=== PATIENT | male | born 1955 | race Asian ===

== ENCOUNTER 2021-08-21 03:38 | Inpatient (IN) | payer OTHER ==
[2021-08-21 04:45] LABS: BASO % 0.6 % (0-2.0); EOS % 0.3 % (0-4.5); HEMATOCRIT 40.4 % (35.4-49); HEMOGLOBIN 13.2 GM/dL (11.7-16.9); LYMPH % 7.3 % (8-40); MCH 27.6 pg (25.7-33.7); MCHC 32.7 g/dl (32.0-35.9); MEAN CELL VOLUME 84.5 fl (80-96); MEAN PLT VOLUME 9.1 fl (7.5-11.1); MONO % 6.6 % (3.8-10.2); NEUT % 85.2 % (42.8-82.8); PLATELET COUNT 184 10^3/uL (134-434); RBC 4.79 M/mm3 (4.00-5.60); WHITE BLOOD COUNT 8.4 K/mm3 (4.0-10.0)
[2021-08-21 04:55] LABS: INR 1.7 (0.83-1.09); PROTHROMBIN TIME (PATIENT) 19.6 SEC (9.7-13.0)
[2021-08-21 04:58] LABS: ACTIVATED PTT 33.6 SECONDS (25.2-36.5)
[2021-08-21 05:12] LABS: CALCIUM 9.3 mg/dL (8.5-10.1)
[2021-08-21 05:13] LABS: ALBUMIN 3.9 g/dl (3.4-5.0); BLOOD UREA NITROGEN 37.3 mg/dL (7-18); MAGNESIUM 2.2 mg/dL (1.8-2.4)
[2021-08-21 05:16] LABS: CREATININE 1.6 mg/dL (0.55-1.3); PHOSPHOROUS 5.2 mg/dL (2.5-4.9)
[2021-08-21 05:17] LABS: BILIRUBIN,TOTAL 2.3 mg/dL (0.2-1); TOT PROT 7.2 g/dl (6.4-8.2)
[2021-08-21 05:19] LABS: N-TERMINAL BNP 4202.5 pg/ml (5-125)
[2021-08-21] MEDS ORDERED: FUROSEMIDE 40 MG/4 ML INJECTABLE VIAL IVPUSH SCH (12:30)
[2021-08-21 13:24] VITALS: BMI 34.3
[2021-08-21] MEDS: INSULIN SLIDING SCALE (NOVOLOG) 1 VIAL SQ SCH ×2 (16:51→21:38)
[2021-08-21 18:02] LABS: URINE UREA NITROGEN 136 mg/dL (350-1000)
[2021-08-21 18:05] LABS: CREATININE, URINE RANDOM < 13.0 mg/dL (30-150)
[2021-08-21] MEDS: ATORVASTATIN CA 20 MG TABLET (FP) PO SCH (21:37)
[2021-08-21] MEDS: APIXABAN 5 MG TABLET PO SCH (21:37)
[2021-08-22] MEDS: INSULIN SLIDING SCALE (NOVOLOG) 1 VIAL SQ SCH ×4 (06:05→21:22)
[2021-08-22 08:59] LABS: HEMATOCRIT 39.5 % (35.4-49); HEMOGLOBIN 13.1 GM/dL (11.7-16.9); MCH 27.6 pg (25.7-33.7); MCHC 33.2 g/dl (32.0-35.9); MEAN CELL VOLUME 83.3 fl (80-96); MEAN PLT VOLUME 8.9 fl (7.5-11.1); PLATELET COUNT 184 10^3/uL (134-434); RBC 4.74 M/mm3 (4.00-5.60); RDW 15.7 % (11.9-15.9); WHITE BLOOD COUNT 7.4 K/mm3 (4.0-10.0)
[2021-08-22 09:18] LABS: ALBUMIN 3.8 g/dl (3.4-5.0); BLOOD UREA NITROGEN 39.5 mg/dL (7-18); CALCIUM 9.3 mg/dL (8.5-10.1); CREATININE 1.4 mg/dL (0.55-1.3); MAGNESIUM 2.3 mg/dL (1.8-2.4)
[2021-08-22 09:19] LABS: TOT PROT 7.2 g/dl (6.4-8.2)
[2021-08-22 09:20] LABS: BILIRUBIN,TOTAL 2.3 mg/dL (0.2-1)
[2021-08-22] MEDS: APIXABAN 5 MG TABLET PO SCH ×2 (09:24→21:22)
[2021-08-22] MEDS: metoPROLOL SUCCINATE 25 MG TAB.SR.24H (FP) PO SCH (09:24)
[2021-08-22] MEDS: ASPIRIN COATED 81 MG TABLET.EC PO SCH (09:24)
[2021-08-22] MEDS: FUROSEMIDE 40 MG/4 ML INJECTABLE VIAL IVPUSH SCH ×2 (11:05→16:43)
[2021-08-22] MEDS ORDERED: INSULIN (NOVOLOG) ASPART 100 UNITS/ML 10ML VIAL ONE (20:59)
[2021-08-22] MEDS: ATORVASTATIN CA 20 MG TABLET (FP) PO SCH (21:22)
[2021-08-23] MEDS: FUROSEMIDE 40 MG/4 ML INJECTABLE VIAL IVPUSH SCH ×3 (05:53→15:23)
[2021-08-23] MEDS: INSULIN SLIDING SCALE (NOVOLOG) 1 VIAL SQ SCH ×4 (06:00→21:22)
[2021-08-23] MEDS: metoPROLOL SUCCINATE 25 MG TAB.SR.24H (FP) PO SCH (09:45)
[2021-08-23] MEDS: APIXABAN 5 MG TABLET PO SCH ×2 (09:45→21:21)
[2021-08-23] MEDS: ASPIRIN COATED 81 MG TABLET.EC PO SCH (09:45)
[2021-08-23 12:59] LABS: BASO % 0.9 % (0-2.0); EOS % 1.9 % (0-4.5); HEMATOCRIT 42.5 % (35.4-49); HEMOGLOBIN 13.7 GM/dL (11.7-16.9); LYMPH % 19.6 % (8-40); MCH 27.3 pg (25.7-33.7); MCHC 32.2 g/dl (32.0-35.9); MEAN CELL VOLUME 84.8 fl (80-96); MEAN PLT VOLUME 9.4 fl (7.5-11.1); MONO % 12.1 % (3.8-10.2); NEUT % 65.5 % (42.8-82.8); PLATELET COUNT 219 10^3/uL (134-434); RBC 5.02 M/mm3 (4.00-5.60); WHITE BLOOD COUNT 7.9 K/mm3 (4.0-10.0)
[2021-08-23 13:18] LABS: ALBUMIN 3.9 g/dl (3.4-5.0)
[2021-08-23 13:19] LABS: BLOOD UREA NITROGEN 42.4 mg/dL (7-18); MAGNESIUM 2.1 mg/dL (1.8-2.4)
[2021-08-23 13:21] LABS: CREATININE 1.5 mg/dL (0.55-1.3)
[2021-08-23 13:23] LABS: BILIRUBIN,TOTAL 2.7 mg/dL (0.2-1)
[2021-08-23] MEDS: ATORVASTATIN CA 20 MG TABLET (FP) PO SCH (21:21)
[2021-08-24] MEDS: FUROSEMIDE 40 MG/4 ML INJECTABLE VIAL IVPUSH SCH ×2 (06:33→15:20)
[2021-08-24] MEDS: INSULIN SLIDING SCALE (NOVOLOG) 1 VIAL SQ SCH ×4 (06:36→22:05)
[2021-08-24 09:44] LABS: BASO % 0.6 % (0-2.0); EOS % 0.2 % (0-4.5); HEMOGLOBIN 13.7 GM/dL (11.7-16.9); LYMPH % 12.4 % (8-40); MEAN CELL VOLUME 84.3 fl (80-96); MEAN PLT VOLUME 9.2 fl (7.5-11.1); MONO % 9.4 % (3.8-10.2); NEUT % 77.4 % (42.8-82.8); PLATELET COUNT 219 10^3/uL (134-434); RDW 16.1 % (11.9-15.9); WHITE BLOOD COUNT 7.8 K/mm3 (4.0-10.0)
[2021-08-24] MEDS: metoPROLOL SUCCINATE 25 MG TAB.SR.24H (FP) PO SCH (10:49)
[2021-08-24] MEDS: APIXABAN 5 MG TABLET PO SCH ×2 (10:49→22:03)
[2021-08-24] MEDS: ASPIRIN COATED 81 MG TABLET.EC PO SCH (10:49)
[2021-08-24 12:33] LABS: CALCIUM 9.6 mg/dL (8.5-10.1)
[2021-08-24 12:34] LABS: ALBUMIN 4.1 g/dl (3.4-5.0); BLOOD UREA NITROGEN 48.3 mg/dL (7-18); MAGNESIUM 2.4 mg/dL (1.8-2.4)
[2021-08-24 12:35] LABS: BILIRUBIN,TOTAL 2.9 mg/dL (0.2-1); TOT PROT 7.4 g/dl (6.4-8.2)
[2021-08-24 12:37] LABS: ALBUMIN 4.1 g/dl (3.4-5.0); CREATININE 1.5 mg/dL (0.55-1.3); PHOSPHOROUS 4.9 mg/dL (2.5-4.9)
[2021-08-24 12:39] LABS: BILIRUBIN,DIRECT 1.4 mg/dL (0.0-0.2)
[2021-08-24 12:42] LABS: BILIRUBIN,TOTAL 2.8 mg/dL (0.2-1); TOT PROT 7.2 g/dl (6.4-8.2)
[2021-08-24] MEDS ORDERED: PANTOPRAZOLE 20 MG TABLET PO SCH (12:45)
[2021-08-24] MEDS ORDERED: URSODIOL 300 MG CAPSULE PO SCH (22:00)
[2021-08-24] MEDS ORDERED: POLYETHYLENE GLYCOL (HEALTHYLAX) 3350 17 GM PACKET PO SCH (22:00)
[2021-08-24 22:59] VITALS: BP 113/66; PULSE 87; TEMP 97.5
== END 2021-08-25 00:15 | disposition short-term general hospital (02) | DRG 444 ==
LOC: JER 03:38 → JERBED 06:26 → J8W 12:17
PROVIDERS: ADMIT Internal Medicine; ATTEND Internal Medicine
DX: K82.8 Other specified diseases of gallbladder (principal); K83.1 Obstruction of bile duct; I50.23 Acute on chronic systolic (congestive) heart failure; N17.9 Acute kidney failure, unspecified; J98.11 Atelectasis; N13.8 Other obstructive and reflux uropathy; I48.92 Unspecified atrial flutter; I13.0 Hypertensive heart and chronic kidney disease with heart failure and stage 1 through stage 4 chronic kidney disease, or unspecified chronic kidney disease; I48.91 Unspecified atrial fibrillation; I25.10 Atherosclerotic heart disease of native coronary artery without angina pectoris; E78.5 Hyperlipidemia, unspecified; R16.0 Hepatomegaly, not elsewhere classified; R74.01 Elevation of levels of liver transaminase levels; R63.0 Anorexia; N50.89 Other specified disorders of the male genital organs; R79.89 Other specified abnormal findings of blood chemistry; Z68.35 Body mass index [BMI] 35.0-35.9, adult; I34.0 Nonrheumatic mitral (valve) insufficiency; I70.0 Atherosclerosis of aorta; I25.2 Old myocardial infarction; E11.22 Type 2 diabetes mellitus with diabetic chronic kidney disease; N18.9 Chronic kidney disease, unspecified; I25.5 Ischemic cardiomyopathy; N13.9 Obstructive and reflux uropathy, unspecified; Z95.1 Presence of aortocoronary bypass graft; Z95.0 Presence of cardiac pacemaker
CPT/HCPCS: 36415; 71045-TC-FY; 74177-TC; 76705-TC; 76775-TC; 80053; 80076; 82248; 82570; 82962; 83690; 83735; 83880; 84100; 84484; 84540; 85025; 85027; 85610; 85730; 93005; 93010; 93306-TC; 99285-25; C9803-CS; U0003; U0005